=== PATIENT | female | born 1955 | race Caucasian/White ===

== ENCOUNTER → 2020-07-22 | Outpatient (CLI) | payer BC ==
[2020-07-22 11:17] LABS: URINE APPEARANCE CLEAR; URINE BILIRUBIN NEGATIVE (NEGATIVE); URINE BLOOD NEGATIVE (NEGATIVE); URINE COLOR YELLOW; URINE GLUCOSE NEGATIVE (NEGATIVE); URINE KETONE NEGATIVE (NEGATIVE); URINE LEUKOCYTE ESTERASE NEGATIVE (NEGATIVE); URINE NITRATE NEGATIVE (NEGATIVE); URINE PROTEIN(semi-quant) NEGATIVE (NEGATIVE); URINE UROBILINOGEN NORMAL (NORMAL)
== END ==
LOC: LAB 10:54
PROVIDERS: Physician Assistant
DX: R30.9 Painful micturition, unspecified (principal); R10.33 Periumbilical pain

== ENCOUNTER → 2022-02-19 | Outpatient (CLI) | payer BC ==
[2022-02-19 12:37] LABS: POTASSIUM 4.1 mmol/L (3.5-5.1)
[2022-02-19 12:39] LABS: CALCIUM 10.2 mg/dL (8.3-10.5)
== END ==
LOC: LAB 09:21
PROVIDERS: Nurse Practitioner Family
DX: U07.1 COVID-19 (principal)

== ENCOUNTER → 2022-04-18 | Day surgery (SDC) | payer BC | LOC: MSO 08:45 | DX: Z12.11 Encounter for screening for malignant neoplasm of colon (principal) | CPT/HCPCS: 00811; J2704; J7120 ==

== ENCOUNTER → 2022-09-14 | Outpatient (CLI) | payer BC | LOC: AMSURD 14:26 | DX: Z01.818 Encounter for other preprocedural examination (principal) ==

== ENCOUNTER 2023-01-24 08:00 | Outpatient (RCR) | payer BC | END 2023-02-23 | disposition home or self-care (01) | LOC: PT | DX: G95.9 Disease of spinal cord, unspecified (principal) ==

== ENCOUNTER 2023-04-25 21:16 | Emergency (ER) | payer BC ==
[~2023-04-25] VITALS: Ht 162.6 cm; Wt 91.3 kg
[2023-04-25 23:02] VITALS: BP 156/78
== END 2023-04-25 23:18 | disposition home or self-care (01) ==
LOC: ED 21:16
DX: I10 Essential (primary) hypertension (principal); Z79.899 Other long term (current) drug therapy

== ENCOUNTER 2023-05-26 08:00 | Outpatient (RCR) | payer BC | END 2023-06-25 | disposition home or self-care (01) | LOC: PT | DX: G95.9 Disease of spinal cord, unspecified (principal) ==

== ENCOUNTER 2024-05-31 08:00 | Outpatient (RCR) | payer BC | END 2024-06-25 | LOC: PT | DX: R26.89 Other abnormalities of gait and mobility (principal) ==

== ENCOUNTER 2024-07-29 08:00 | Outpatient (RCR) | payer BC | END 2024-08-23 | LOC: PT | DX: R26.89 Other abnormalities of gait and mobility (principal) ==